=== PATIENT | male | born 1935 | race Caucasian/White ===

== ENCOUNTER 2019-03-08 07:11 | Observation (INO) | payer OTHER ==
[2019-02-22 08:57] VITALS: BP 128/83
[~2019-03-08] VITALS: Ht 170.2 cm; Wt 75.9 kg
[~2019-03-08 07:11] MED LIST: ALBU8.5H8 INH; ALLO300T PO; ASPI-496 PO; CELE200C PO; COLE625T12 PO; DIPH25CA61 PO; MIRT-34 PO; MULT-108 PO; SIMV40TA3 PO
[2019-03-08] MEDS ORDERED: VANCOMYCIN 1,000 MG ONE (07:14)
[2019-03-08] MEDS ORDERED: methylPREDNISolone SOD SUCC 125 MG/2 ML ONE (07:14)
[2019-03-08] MEDS ORDERED: EPINEPHRINE 1 MG/ML, 1ML ONE (07:14)
[2019-03-08] MEDS ORDERED: BACITRACIN 50,000 UNIT ONE (07:14)
[2019-03-08] MEDS ORDERED: BUPIVACAINE/PF 0.25% ONE (07:14)
[2019-03-08] MEDS ORDERED: THROMBIN (RECOMBINANT) 5,000 UNIT VIAL TP ONE (07:16)
[2019-03-08] MEDS ORDERED: LACTATED RINGERS 1,000 ML IV SCH (07:38)
[2019-03-08] MEDS ORDERED: FENTANYL PF 250 MCG/5ML ONE (09:22)
[2019-03-08] MEDS ORDERED: MIDAZOLAM 1 MG/ML, 2ML ONE (09:22)
[2019-03-08] MEDS ORDERED: ROCURONIUM 10MG/ML,5ML ONE (09:23)
[2019-03-08] MEDS ORDERED: LIDOCAINE-MPF 2% ,5ML ONE (09:24)
[2019-03-08] MEDS ORDERED: PROPOFOL 10 MG/ML, 20ML ONE (09:24)
[2019-03-08] MEDS ORDERED: WATER-INJECTION,STERILE 10 ML IV ONE (09:25)
[2019-03-08] MEDS ORDERED: CEFAZOLIN 1,000 MG ONE ×2 (09:25)
[2019-03-08] MEDS ORDERED: PROPOFOL 50 ML ONE (09:30)
[2019-03-08] MEDS ORDERED: SUGAMMADEX 200 MG/2 ML IVPush ONE (10:24)
[2019-03-08] MEDS ORDERED: DEXAMETHASONE 4 MG/ML, 1ML ONE (10:24)
[2019-03-08] MEDS ORDERED: ONDANSETRON 2MG/ML, 2ML ONE (10:24)
[2019-03-08] MEDS ORDERED: BUPIVACAINE/PF 0.25% INFIL ONE (11:02)
[2019-03-08] MEDS ORDERED: MAGNESIUM HYDROXIDE 8%, 30ML UDC PO PRN (12:00)
[2019-03-08] MEDS ORDERED: DIPHENHYDRAMINE 50 MG/ML, 1ML IVPush PRN (12:00)
[2019-03-08] MEDS ORDERED: TIZANIDINE 2MG TABLET PO PRN (12:00)
[2019-03-08] MEDS ORDERED: PHARMACY MAY ADJ FOR RENAL FX MC PRN (12:00)
[2019-03-08] MEDS ORDERED: HYDROmorphone 2 MG/ML, 1ML IVPush PRN ×2 (12:00→12:30)
[2019-03-08] MEDS ORDERED: ONDANSETRON 2MG/ML, 2ML IVPush PRN (12:00)
[2019-03-08] MEDS ORDERED: DIPHENHYDRAMINE 25 MG CAPSULE PO PRN (12:00)
[2019-03-08] MEDS ORDERED: HYDROcodone/APAP 10/325 MG TABLET PO PRN (12:00)
[2019-03-08] MEDS ORDERED: BISACODYL 10 MG SUPP PR PRN (12:00)
[2019-03-08] MEDS ORDERED: HYDROmorphone PCA 30 MG/30 ML IV PRN (12:00)
[2019-03-08] MEDS ORDERED: HYDROmorphone 1 MG/ML, 1ML VIAL ONE (12:20)
[2019-03-08] MEDS: HYDROmorphone 2 MG/ML, 1ML IVPush PRN ×2 (12:25→12:41)
[2019-03-08] MEDS ORDERED: PROMETHAZINE 25 MG/ML, 1ML IV PRN (12:30)
[2019-03-08] MEDS ORDERED: MEPERIDINE/PF 25MG/ML,1ML IVPush PRN (12:30)
[2019-03-08] MEDS ORDERED: ALBUTEROL SULFATE 2.5 MG/3 ML NPPB PRN (12:30)
[2019-03-08] MEDS ORDERED: hydrALAzine 20 MG/ML, 1ML IV PRN (12:30)
[2019-03-08] MEDS ORDERED: FENTANYL PF 100 MCG/2ML IV PRN (12:30)
[2019-03-08] MEDS ORDERED: ACETAMINOPHEN 325 MG TABLET PO PRN (12:30)
[2019-03-08] MEDS ORDERED: HALOPERIDOL 5 MG/ML IV PRN (12:30)
[2019-03-08] MEDS ORDERED: OXYcodone 5 MG/5 ML ORAL.SOL UDC PO PRN (12:30)
[2019-03-08] MEDS: CEFAZOLIN PMX 1GM/50ML 50 ML IVPB SCH (18:20)
[2019-03-08] MEDS: NS + 20MEQ KCL 1,000 ML IV SCH (18:20)
[2019-03-08] MEDS ORDERED: MIRTAZAPINE MC SCH (18:30)
[2019-03-08 19:33] VITALS: BP 107/71
[2019-03-08] MEDS: COLESEVELAM 625 MG TABLET PO SCH (20:27)
[2019-03-08] MEDS: SIMVASTATIN 40 MG TABLET PO SCH (20:27)
[2019-03-08] MEDS: SODIUM CHLORIDE FLUSH 10ML SYR IVF SCH (20:28)
[2019-03-08] MEDS: OXYcodone/APAP 5/325MG TABLET PO PRN ×2 (20:40→21:30)
[2019-03-08] MEDS: MIRTAZAPINE 15 MG TABLET PO SCH (22:52)
[2019-03-09 00:35] VITALS: BP 109/59
[2019-03-09] MEDS: OXYcodone/APAP 5/325MG TABLET PO PRN ×5 (01:43→22:38)
[2019-03-09] MEDS: CEFAZOLIN PMX 1GM/50ML 50 ML IVPB SCH (01:43)
[2019-03-09] MEDS: NS + 20MEQ KCL 1,000 ML IV SCH ×2 (04:00→14:37)
[2019-03-09 04:11] VITALS: BP 107/58
[2019-03-09] MEDS: SENNA/DOCUSATE TABLET PO SCH (08:54)
[2019-03-09] MEDS: ALLOPURINOL 300 MG TABLET PO SCH (08:54)
[2019-03-09] MEDS: COLESEVELAM 625 MG TABLET PO SCH ×2 (08:54→21:00)
[2019-03-09] MEDS: SODIUM CHLORIDE FLUSH 10ML SYR IVF SCH ×2 (08:55→22:09)
[2019-03-09] MEDS ORDERED: OXYC1TAB7 PO (09:16)
[2019-03-09] MEDS ORDERED: TIZA2TAB2 PO (09:16)
[2019-03-09 09:28] VITALS: BP 98/63
[2019-03-09 12:15] VITALS: BP 96/62
[2019-03-09 19:45] VITALS: BP 100/65
[2019-03-09] MEDS: SIMVASTATIN 40 MG TABLET PO SCH (22:09)
[2019-03-09] MEDS: MIRTAZAPINE 15 MG TABLET PO SCH (22:09)
[2019-03-10 01:30] VITALS: BP 83/53
[2019-03-10] MEDS: OXYcodone/APAP 5/325MG TABLET PO PRN ×3 (02:50→11:07)
[2019-03-10 07:15] VITALS: BP 115/74
[2019-03-10] MEDS: SENNA/DOCUSATE TABLET PO SCH (09:32)
[2019-03-10] MEDS: ALLOPURINOL 300 MG TABLET PO SCH (09:32)
[2019-03-10] MEDS: SODIUM CHLORIDE FLUSH 10ML SYR IVF SCH (09:33)
[2019-03-10] MEDS: COLESEVELAM 625 MG TABLET PO SCH (09:33)
[2019-03-10] MEDS: NS + 20MEQ KCL 1,000 ML IV SCH ×2 (10:00)
== END 2019-03-10 11:40 | disposition home or self-care (01) ==
LOC: OUT 07:11 → ORIP 11:54 → 4NE 13:42 → DCLOUNGE 03-10 11:26
PROVIDERS: ADMIT Neurological Surgery; ATTEND Neurological Surgery
DX: M48.061 Spinal stenosis, lumbar region without neurogenic claudication (principal); E78.00 Pure hypercholesterolemia, unspecified; F41.9 Anxiety disorder, unspecified; F32.9 Major depressive disorder, single episode, unspecified; J45.909 Unspecified asthma, uncomplicated; Z87.891 Personal history of nicotine dependence; Z79.899 Other long term (current) drug therapy
CPT/HCPCS: 63047; 63048; 72100; 96365; 96366; 97162; 97166; G0378; J0171; J0690; J1100; J1170; J2250; J2405; J2704; J3010; J3480; J3490; J3370; J2930